=== PATIENT | male | born 1955 | race Caucasian/White ===

== ENCOUNTER → 2016-08-03 | Outpatient (CLI) | payer OTHER ==
[~2016-08-03] MED LIST: CEFUROXIME500 MG PO; CLEOCIN300 MG PO; LORTAB 5-325 M1 EACH PO; MEDROL DOSEPAK4 MG PO; PROAIR HFA8.5 GM IH; ZITHROMAX500 MG PO
== END | disposition home or self-care (01) ==
LOC: AMB 08:27
DX: L72.0 Epidermal cyst (principal)
CPT/HCPCS: 88304